=== PATIENT | male | born 1975 | race Two or more races ===

== ENCOUNTER 2024-10-18 10:28 | Emergency (ER) | payer MEDICAID, SELFPAY ==
[2024-10-18 10:30] VITALS: BMI 37.4
[2024-10-18 10:44] VITALS: BP 131/86; PULSE 88; RESP 18; TEMP 36.9; O2SAT 99
--- NOTE | 2024-10-18 10:50 | XR_ITS ---
Examination: Foot, left, 3 views Technique: AP, oblique, lateral views foot, 3 views Date and time of exam: October 18, 2024 1101 hours INDICATIONS: Patient fell 3 weeks ago with injury to the first digit, first digit pain. FINDINGS: Soft tissue swelling about the first digit. Large plantar posterior bony calcaneal spurs. No acute fracture IMPRESSION: No acute fracture
[2024-10-18] MEDS: KETOROLAC INJ 60 MG/2 ML VIAL 30 MG IM (10:56)
--- NOTE | 2024-10-18 11:00 | EDNOTE_ITS ---
Lower Extremity Injury RME/HPI General Stated Complaint: LEFT FOOT SWELLING FOR 4 DAYS AFTER FALL Time Seen by Provider: 10/18/24 10:45 Source: patient Arrival date/time: 10/18/24 10:28 49-year-old female with no known medical history presents to the emergency room with a chief complaint of swelling and tenderness to his left foot first digit x 4 days Mode of arrival: ambulatory Limitations: no limitations Related Data Allergies Allergy/AdvReac Type Severity Reaction Status Date / Time No Known Allergies Allergy Verified 10/18/24 10:33 Review of Systems Review of Systems Systems Reviewed: All systems reviewed, normal except as documented Constitutional Constitutional: Reports system reviewed and no additional complaints, except as documented, Denies fatigue, Denies fever(s), Denies headache(s) and Denies weakness Eyes Eyes: Reports system reviewed and no additional complaints, except as documented, Denies blurry vision and Denies change in vision ENT Ears, Nose, Mouth, and Throat: Reports system reviewed and no additional complaints, except as documented, Denies otalgia, Denies headache(s), Denies nasal congestion, Denies throat swelling and Denies vertigo Cardiovascular Cardiovascular: Reports system reviewed and no additional complaints, except as documented, Denies chest pain, Denies dyspnea and Denies dyspnea on exertion Respiratory Respiratory: Reports system reviewed and no additional complaints, except as documented, Denies chest congestion, Denies cough, Denies dyspnea, Denies dyspnea on exertion and Denies wheezing Gastrointestinal Gastrointestinal: Reports system reviewed and no additional complaints, except as documented, Denies abdominal pain, Denies cramping, Denies nausea and Denies vomiting Genitourinary Genitourinary: Reports system reviewed and no additional complaints, except as documented, Denies dysuria and Denies hematuria Musculoskeletal Musculoskeletal: Reports system reviewed and no additional complaints, except as documented, Reports abnormal gait, Reports arthralgias, Denies back pain, Reports joint swelling and Denies limited range of motion Integumentary/Breasts Skin/Breast: Reports system reviewed and no additional complaints, except as documented and Denies wounds Neurologic Neurologic: Reports system reviewed and no additional complaints, except as documented, Reports abnormal gait, Denies confusion, Denies headache(s), Denies lack of coordination, Denies vertigo and Denies weakness Psychiatric Psychiatric: Reports system reviewed and no additional complaints, except as documented, Denies anxiety, Denies confusion, Denies depression, Denies paranoia, Denies suicidal ideation and Denies tactile hallucinations Endocrine Endocrine: Reports system reviewed and no additional complaints, except as documented and Denies fatigue Hematologic/Lymphatic Hematologic/Lymphatic: Reports system reviewed and no additional complaints, except as documented and Denies lymphadenopathy Allergic/Immunologic Allergic/Immunologic: Reports system reviewed and no additional complaints, except as documented, Denies throat swelling, Denies urticaria and Denies wheezing ED Exam General Limitations: Present no limitations General appearance: Present alert and in no apparent distress Head Head exam: Present atraumatic Eye Eye exam: Present normal appearance, PERRL and EOMI ENT ENT exam: Present normal exam, normal oropharynx and mucous membranes moist Neck Neck exam: Present normal inspection, full ROM and trachea midline Chest Chest inspection: Present normal inspection and symmetric chest wall rise Respiratory Respiratory exam: Present normal lung sounds bilaterally Cardiovascular Cardiovascular exam: Present regular rate, normal rhythm and normal heart sounds Abdominal Exam Abdominal exam: Present soft and normal bowel sounds Extremities Exam Extremities exam: Present normal inspection and full ROM Expanded Lower Extremity Exam Hip/Pelvis exam: Present normal inspection Upper leg exam: Present normal inspection Knee exam: Present normal inspection Lower leg exam: Present normal inspection Ankle exam: Present normal inspection Foot/toe exam: Present tenderness and swelling; Absent full ROM Gait: observed and limited by pain Back Exam Back exam: Present normal inspection and full ROM Neurological Exam Neurological exam: Present alert, oriented X3 and CN II-XII intact Psychiatric Psychiatric exam: Present normal affect and normal mood Skin Skin exam: Present warm, dry, intact and normal color Course Quality Measures none Orders Category Date Time Status XR foot comp LT min 3V Stat Exams 10/18/24 10:50 Completed CBC Stat Lab 10/18/24 10:57 Completed CMP [Comprehensive Metabolic Panel] Stat Lab 10/18/24 10:57 Completed Uric Acid Stat Lab 10/18/24 10:57 Completed Ketorolac Inj [Toradol Inj] Med 10/18/24 10:50 Discontinued 30 mg IM X1 ONE Vital Signs Vital signs: Vital Signs Temperature 98.4 F 10/18/24 10:44 Pulse Rate 88 10/18/24 10:44 Respiratory Rate 18 10/18/24 10:44 Blood Pressure 131/86 H 10/18/24 10:44 Pulse Oximetry (%) 99 10/18/24 10:44 Oxygen Delivery Method Room Air 10/18/24 10:44 Extremity Injury, Lower MDM Narrative MDM Narrative:: 49-year-old female with no known medical history presents to the emergency room with a chief complaint of swelling and tenderness to his left foot first digit x 4 days Patient is hemodynamically stable and in no apparent distress Physical examination shows tenderness swelling and limited range of motion to the left foot first digit. Patient states he had an injury couple days ago when something fell on it but states he was seen by his primary care provider and told that it was possibly gout. CBC CMP uric acid were all within normal limits. X-ray was negative for any acute findings Patient was discharged and educated to follow-up with primary care provider in the next 24 to 48 hours and return to the emergency room for any evidence of worsening signs or symptoms Patient data External records reviewed:: [facility] previous records Clinical information provided by:: patient Social determinants that could affect healthcare access:: none Patient has the following chronic illnesses:: No chronic illness How is presenting disease/condition affected by chronic disease/condition?: no chronic disease Evaluation data The following diagnostics were reviewed and interpreted by me:: lab results and radiology exam(s) Lab and/or radiology exams considered but not ordered:: Labs and radiology exams considered and ordered Interpretation Summary: Foot [id number]: Soft tissue swelling about the first digit. Large plantar posterior bony calcaneal spurs. No acute fracture IMPRESSION: No acute fracture Medications / Prescriptions Medications or Prescriptions considered but not ordered:: Medication given Medication administrations:: Medication Administration History Discontinued Medications Ketorolac Tromethamine (Ketorolac Inj 60 Mg/2 Ml Vial) 30 mg IM X1 ONE Stop: 10/18/24 10:51 Last Admin: 10/18/24 10:56 Dose: 30 mg Documented By: Medication given Consultations Consultation(s) initiated? (list below): No Diagnosis Extremity Injury, Lower Differential Diagnosis: fracture of toe and other (Toe sprain/gout) Most likely diagnosis given after review of the tests above:: Toe sprain Admission Indicated Admission indicated?: not indicated Admission Request Was there a request for admission?: No Disposition Plan Disposition Plan: Discharge Discharge Attestation Discharge Attestation: The patient and all family members were given an opportunity to ask questions and understood the discharge instructions. Discharge instructions specifically effects, indications for sooner follow up or return to the emergency department, and the expected course of current diagnosis. Patient condition: Stable Discharge Plan Plan Patient Disposition: HOME (Self Care) Discharge Disposition comment: Stable Prescriptions/Referrals Referrals: Ketan Azul PA-C [Primary Care Provider] - In 1 week Problem List Clinical Impression: Sprain of great toe, right Patient/Caregiver Discharge Instructions Education Materials: ED Toe Sprain Additional Instructions: Por favor, consulte con webb m?dico de cabecera en las pr?ximas 24 a 48 horas. La radiograf?a de webb dedo del pie fue negativa para cualquier fractura o luxaci?n aguda. El ?cido ?rico y los an?lisis de mirielle estaban dentro de los l?mites normales. Si observa cualquier signo de empeoramiento de los signos o s?ntomas, acuda a urgencias de inmediato. Print Language: Marshallese Stand Alone Forms: Meliza Award Info., Patient Portal Info Letter PA/ASSOCIATE PROFESSOR OF ENGLISH Supervising Physician PA/ASSOCIATE PROFESSOR OF ENGLISH Supervising Physician: Dr. Wang
[2024-10-18 11:20] LABS: Basophils # (Auto) 0.0 Thou/mm3 (0.0-0.2); Basophils % (Auto) 0 % (0-2.5); Eosinophils # (Auto) 0.2 Thou/mm3 (0.0-0.5); Eosinophils % (Auto) 3 % (0-10); Hematocrit 45.3 % (41.0-53.0); Hemoglobin 16.0 g/dL (13.5-16.0); Immature Granulocytes Auto 0.04 Thou/mm3 (0.00-0.00); Lymphocytes # (Auto) 2.2 Thou/mm3 (1.0-4.8); Lymphocytes % (Auto) 23 % (10-50); Mean Corpuscular HGB Conc 35.3 g/dl (31.0-37.0); Mean Corpuscular Hemoglobin 30.7 pg (25.0-35.0); Mean Corpuscular Volume 87 fL (80-100); Monocytes # (Auto) 1.0 Thou/mm3 (0.0-0.8); Monocytes % (Auto) 11 % (0-12); Neutrophils # (Auto) 6.0 Thou/mm3 (1.8-7.7); Neutrophils % (Auto) 63 % (37-80); Nucleated Red Blood Cell # 0.00 Thou/mm3 (0.00-0.00); Nucleated Red Blood Cell % 0 /100 WBC (0); Platelet Count 252 Thou/mm3 (140-440); RDW Standard Deviation 38.8 fL (35.1-43.9); Red Blood Count 5.22 Miln/mm3 (4.50-5.90); White Blood Count 9.5 Thou/mm3 (3.8-10.6)
[2024-10-18 11:36] LABS: Alanine Aminotransferase 15 U/L (10-49); Albumin, Serum 4.8 gm/dL (3.5-5.0); Albumin/Globulin Ratio 1.5 (1.2-2.2); Alkaline Phosphatase 101 U/L (46-116); Anion Gap 11 (7-16); Aspartate Amino Transferase 20 U/L (0-34); BUN/Creatinine Ratio 15 Ratio (12-20); Bilirubin,Total 1.0 mg/dL (0.3-1.2); Blood Urea Nitrogen 12 mg/dL (9-23); Calcium 9.7 mg/dL (8.3-10.6); Calcium (Corrected) 9.7 mg/dL (8.5-10.1); Carbon Dioxide 26.4 mMol/L (20.0-31.0); Chloride 104 mMol/L (98-107); Creatinine (Component) 0.8 mg/dL (0.6-1.3); Estimated Creatinine Clearance 124.1 mL/min (>60); Globulin 3.1 gm/dL (2.3-3.5); Glucose 93 mg/dL (74-106); Osmolality,Calculated 280 (275-295); Potassium 4.0 mMol/L (3.4-5.1); Sodium 141 mMol/L (136-145); Total Protein 7.9 gm/dL (5.7-8.2); Uric Acid 5.5 mg/dL (3.7-9.2); eGFR > 60 See Note
== END 2024-10-18 12:08 | disposition home or self-care (01) ==
PROVIDERS: Nurse Practitioner Family; Emergency Provider Family Medicine; PCP Physician Assistant
DX: S93.501A Unspecified sprain of right great toe, initial encounter (principal); W19.XXXA Unspecified fall, initial encounter
CPT/HCPCS: 36415; 73630; 80053; 84550; 85025; 96372; 99283; J1885

== ENCOUNTER 2024-10-31 12:54 | Emergency (ER) | payer MEDICAID, SELFPAY ==
[2024-10-31 12:55] VITALS: BMI 36.9
[2024-10-31 13:16] VITALS: BP 131/83; PULSE 74; RESP 18; TEMP 36.9; O2SAT 98
--- NOTE | 2024-10-31 13:27 | XR_ITS ---
Examination: Foot, left, 3 views Technique: AP, oblique, lateral views foot, 3 views Date and time of exam: October 31, 2024 1329 hours INDICATIONS: Work injury one month ago to the foot with persistent foot pain FINDINGS: No acute fracture Large plantar posterior bony calcaneal spurs No dislocation IMPRESSION: No acute fracture
[2024-10-31] MEDS: KETOROLAC INJ 60 MG/2 ML VIAL 30 MG IM (13:48)
[2024-10-31 14:25] LABS: Basophils # (Auto) 0.1 Thou/mm3 (0.0-0.2); Basophils % (Auto) 0 % (0-2.5); Eosinophils # (Auto) 0.3 Thou/mm3 (0.0-0.5); Eosinophils % (Auto) 3 % (0-10); Hematocrit 49.0 % (41.0-53.0); Hemoglobin 16.7 g/dL (13.5-16.0); Immature Granulocytes Auto 0.15 Thou/mm3 (0.00-0.00); Lymphocytes # (Auto) 2.7 Thou/mm3 (1.0-4.8); Lymphocytes % (Auto) 23 % (10-50); Mean Corpuscular HGB Conc 34.1 g/dl (31.0-37.0); Mean Corpuscular Hemoglobin 29.7 pg (25.0-35.0); Mean Corpuscular Volume 87 fL (80-100); Monocytes # (Auto) 1.1 Thou/mm3 (0.0-0.8); Monocytes % (Auto) 10 % (0-12); Neutrophils # (Auto) 7.2 Thou/mm3 (1.8-7.7); Neutrophils % (Auto) 62 % (37-80); Nucleated Red Blood Cell # 0.00 Thou/mm3 (0.00-0.00); Nucleated Red Blood Cell % 0 /100 WBC (0); Platelet Count 227 Thou/mm3 (140-440); RDW Standard Deviation 39.6 fL (35.1-43.9); Red Blood Count 5.63 Miln/mm3 (4.50-5.90); White Blood Count 11.6 Thou/mm3 (3.8-10.6)
[2024-10-31 14:45] LABS: Sed Rate (ESR) 14 mm/hr (0-15)
[2024-10-31 14:50] LABS: Alanine Aminotransferase 22 U/L (10-49); Albumin, Serum 4.8 gm/dL (3.5-5.0); Albumin/Globulin Ratio 1.7 (1.2-2.2); Alkaline Phosphatase 102 U/L (46-116); Anion Gap 8 (7-16); Aspartate Amino Transferase 21 U/L (0-34); BUN/Creatinine Ratio 18 Ratio (12-20); Bilirubin,Total 0.8 mg/dL (0.3-1.2); Blood Urea Nitrogen 14 mg/dL (9-23); C-Reactive Protein < 0.5 mg/dL (0.0-0.9); Calcium 9.9 mg/dL (8.3-10.6); Calcium (Corrected) 9.9 mg/dL (8.5-10.1); Carbon Dioxide 28.4 mMol/L (20.0-31.0); Chloride 104 mMol/L (98-107); Creatinine (Component) 0.8 mg/dL (0.6-1.3); Estimated Creatinine Clearance 123.3 mL/min (>60); Globulin 2.8 gm/dL (2.3-3.5); Glucose 81 mg/dL (74-106); Osmolality,Calculated 278 (275-295); Potassium 4.2 mMol/L (3.4-5.1); Sodium 140 mMol/L (136-145); Total Protein 7.6 gm/dL (5.7-8.2); Uric Acid 6.3 mg/dL (3.7-9.2); eGFR > 60 See Note
--- NOTE | 2024-10-31 15:33 | XR_ITS ---
Examination: Duplex scan of the lower extremity, unilateral left complete Date and time of exam: October 31, 2024, 1558 hrs. Indications: Left foot swelling and pain beginning 3 weeks ago. Technique: Duplex scan of the extremity veins using B-mode/grayscale imaging and Doppler spectral analysis and color flow Attention is directed to internal echogenicity, compression and augmentation involving these veins, color flow assessment, spectral analysis Findings: Major deep venous structures in the extremity demonstrate normal course and caliber. There is no evidence of deep vein thrombosis. Normal color flow and spectral analysis Impression: Negative for DVT.. Hyperechoic solid structure posterior left knee anterior to the popliteal artery 2.2 x 1.6 x 1.5 cm, consider MRI knee without contrast follow-up
--- NOTE | 2024-10-31 16:23 | PD.EDANKLE ---
Lower Extremity Injury RME/HPI General Chief Complaint: Ankle/Foot Injury Stated Complaint: LEFT FOOT PAIN Time Seen by Provider: 10/31/24 13:27 Arrival date/time: 10/31/24 12:54 49-year-old male with no significant medical problems presents to the emergency room today for complaints of left foot pain and swelling ongoing x 1 month Limitations: no limitations Related Data Previous Rx's ?Medication ?Instructions ?Recorded hydrocodone 5 mg-acetaminophen 325 1 tab PO BID PRN pain #10 tabs 10/31/24 mg tablet meloxicam 7.5 mg tablet 7.5 mg PO QDAY 7 days #7 tabs 10/31/24 Allergies Allergy/AdvReac Type Severity Reaction Status Date / Time No Known Allergies Allergy Verified 10/31/24 12:55 Review of Systems Review of Systems Systems Reviewed: All systems reviewed, normal except as documented Constitutional Constitutional: Reports system reviewed and no additional complaints, except as documented, Denies fever(s) and Denies headache(s) Eyes Eyes: Reports system reviewed and no additional complaints, except as documented and Denies blurry vision ENT Ears, Nose, Mouth, and Throat: Reports system reviewed and no additional complaints, except as documented, Denies headache(s), Denies nasal congestion and Denies nasal discharge Cardiovascular Cardiovascular: Reports system reviewed and no additional complaints, except as documented, Denies chest pain and Denies dyspnea Respiratory Respiratory: Reports system reviewed and no additional complaints, except as documented, Denies chest congestion, Denies cough and Denies dyspnea Gastrointestinal Gastrointestinal: Reports system reviewed and no additional complaints, except as documented and Denies abdominal pain Musculoskeletal Musculoskeletal: Reports system reviewed and no additional complaints, except as documented, Reports abnormal gait, Reports arthralgias (Mild swelling dorsal aspect left foot mostly left great toe), Denies deformity, Denies numbness, Reports stiffness and Denies tingling Integumentary/Breasts Skin/Breast: Reports system reviewed and no additional complaints, except as documented and Denies rash Neurologic Neurologic: Reports system reviewed and no additional complaints, except as documented, Reports as per HPI, Reports abnormal gait, Denies headache(s), Denies numbness and Denies tingling Past Medical History Social History SMOKING STATUS: Never smoker ED Exam General Limitations: Present no limitations General appearance: Present alert and in no apparent distress Head Head exam: Present atraumatic Eye Eye exam: Present normal appearance, PERRL and EOMI ENT ENT exam: Present normal exam, normal oropharynx and mucous membranes moist Neck Neck exam: Present normal inspection, full ROM and trachea midline Chest Chest inspection: Present normal inspection and symmetric chest wall rise Respiratory Respiratory exam: Present normal lung sounds bilaterally Cardiovascular Cardiovascular exam: Present regular rate, normal rhythm and normal heart sounds Abdominal Exam Abdominal exam: Present soft and normal bowel sounds; Absent distention, tenderness, guarding, rebound or rigidity Extremities Exam Extremities exam: Present normal inspection, full ROM, tenderness and normal capillary refill; Absent pedal edema, joint swelling or calf tenderness Back Exam Back exam: Present normal inspection and full ROM Neurological Exam Neurological exam: Present alert, oriented X3, CN II-XII intact, normal gait and reflexes normal; Absent motor sensory deficit Psychiatric Psychiatric exam: Present normal affect and normal mood Skin Skin exam: Present warm, dry, intact and normal color; Absent rash Course Quality Measures none Orders Category Date Time Status US venous doppler LE LT Stat Exams 10/31/24 15:33 Completed XR foot comp LT min 3V Stat Exams 10/31/24 13:27 Completed CBC Stat Lab 10/31/24 14:03 Completed CMP [Comprehensive Metabolic Panel] Stat Lab 10/31/24 14:03 Completed CRP [C-Reactive Protein] Stat Lab 10/31/24 14:03 Completed ESR [Sed Rate (ESR)] Stat Lab 10/31/24 14:03 Completed Uric Acid Stat Lab 10/31/24 14:03 Completed Ketorolac Inj [Toradol Inj] Med 10/31/24 13:27 Discontinued 30 mg IM X1 ONE Vital Signs Vital signs: Vital Signs Temperature 98.4 F 10/31/24 13:16 Pulse Rate 74 10/31/24 13:16 Respiratory Rate 18 10/31/24 13:16 Blood Pressure 131/83 H 10/31/24 13:16 Pulse Oximetry (%) 98 10/31/24 13:16 Oxygen Delivery Method Room Air 10/31/24 13:16 O2 saturation 98% room air within limits Extremity Injury, Lower MDM Narrative MDM Narrative:: 49-year-old male with no significant medical problems presents to the emergency room today for complaints of left foot pain and swelling ongoing x 1 month On exam patient well-appearing patient is not appear ill or toxic no acute distress Lab work and imaging obtained no acute emergent findings noted Patient discharged home in no distress to follow-up with primary care doctor in the next 24 to 48 hours and for any worsening symptoms to return to the ER immediately Patient data External records reviewed:: [facility] previous records Clinical information provided by:: patient Social determinants that could affect healthcare access:: none Patient has the following chronic illnesses:: None How is presenting disease/condition affected by chronic disease/condition?: no chronic disease Evaluation data The following diagnostics were reviewed and interpreted by me:: lab results and radiology exam(s) Lab and/or radiology exams considered but not ordered:: Labs radiology obtained Interpretation Summary: Reviewed by me Medications / Prescriptions Medications or Prescriptions considered but not ordered:: Given Medication administrations:: Medication Administration History Discontinued Medications Ketorolac Tromethamine (Ketorolac Inj 60 Mg/2 Ml Vial) 30 mg IM X1 ONE Stop: 10/31/24 13:28 Last Admin: 10/31/24 13:48 Dose: 30 mg Documented By: Given Consultations Consultation(s) initiated? (list below): No Diagnosis Extremity Injury, Lower Differential Diagnosis: ankle sprain and strain, acute internal derangement of knee and ankle fracture Most likely diagnosis given after review of the tests above:: Foot sprain, foot fracture, gout Admission Indicated Admission indicated?: not indicated Admission Request Was there a request for admission?: No Disposition Plan Disposition Plan: Discharge Discharge Attestation Discharge Attestation: The patient and all family members were given an opportunity to ask questions and understood the discharge instructions. Discharge instructions specifically effects, indications for sooner follow up or return to the emergency department, and the expected course of current diagnosis. Patient condition: Stable Discharge Plan Plan Patient Disposition: HOME (Self Care) Discharge Disposition comment: Stable Prescriptions/Referrals Prescriptions/Med Rec: New hydrocodone-acetaminophen 5-325 mg tablet 1 tab PO BID MDD 10 PRN (Reason: pain) Qty: 10 0RF meloxicam 7.5 mg tablet 7.5 mg PO QDAY 7 Days Qty: 7 0RF Referrals: Ketan Azul PA-C [Primary Care Provider] - 11/01/24 Problem List Clinical Impression: Acute pain of left foot Patient/Caregiver Discharge Instructions Education Materials: RICE Additional Instructions: Please follow up with your primary care doctor in the next 24-48hrs for any worsening symptoms return here immediately Please request outpatient MRI of knee and foot Print Language: Mohawk Stand Alone Forms: Meliza Award Info., Work/School Release, Patient Portal Info Letter PA/FURNACE INSTALLER HELPER Supervising Physician PA/FURNACE INSTALLER HELPER Supervising Physician: Dr salvador
== END 2024-10-31 16:55 | disposition home or self-care (01) ==
PROVIDERS: Nurse Practitioner Primary Care; Emergency Provider Family Medicine; PCP Physician Assistant
DX: M79.672 Pain in left foot (principal)
CPT/HCPCS: 36415; 73630; 80053; 84550; 85025; 85652; 86140; 93971; 96372; 99283; J1885

== ENCOUNTER → 2024-11-25 | Outpatient (CLI) | payer MEDICAID, SELFPAY ==
--- NOTE | 2024-11-25 16:45 | XR_ITS ---
Exam: MRI knee without contrast, left Date and time of exam: November 25, 2024, 1820 hrs. Indications: Patient fell last month with injury to the knee, persistent knee pain and swelling numbness paresthesias joint clicking instability stiffness and swelling Technique: Multiple axial, coronal, and sagittal sections on the knee have been obtained. T2-Weighted sagittal, fat-suppressed images, TR 3,500, TE 62, T2 weighted coronal fat-saturated images, TR 3,500, TE 62 Proton density sagittal sections, TR 1800, TE 31. T-1 weighted coronal images, TR 524, TE 13.0 Findings: Medial meniscus anterior horn intact. Medial meniscus, body meniscocapsular separation. Posterior horn medial meniscus horizontal linear tear, peripheral and tiny vertical tear communicating inferior articular surface Lateral meniscus anterior horn is intact Lateral meniscus, body is intact Posterior horn lateral meniscus is intact Anterior cruciate ligament mild sprain. Posterior cruciate ligament appears intact. Knee effusion is small. Quadriceps and patellar tendons appear intact. There is no evidence of tendinosis. Inflammatory change or fracture of Hoffa's fat pad is not seen. Medial patellar facet demonstrates mild thinning. Lateral patellar facet cartilage demonstrates mild thinning. Trochlear cartilage demonstrates mild thinning. Marrow signal adequate. Medial collateral ligament appears intact. . Illiotibial band and fibular collateral ligament are intact. Biceps femoris tendons appear intact. Medial femoral condylar articular cartilage demonstrates moderate thinning. Lateral femoral condylar articular cartilage demonstratesmoderate thinning. Tibial plateau cartilage demonstrates moderate thinning. Impression: Tears of the posterior horn medial meniscus Meniscocapsular separation body the medial meniscus Mild sprain anterior cruciate ligament
== END | disposition home or self-care (01) ==
PROVIDERS: PCP Physician Assistant; Referring Provider Physician Assistant; Visit Provider Physician Assistant
DX: S83.242A Other tear of medial meniscus, current injury, left knee, initial encounter (principal); S83.195A Other dislocation of left knee, initial encounter; S83.512A Sprain of anterior cruciate ligament of left knee, initial encounter; W19.XXXA Unspecified fall, initial encounter
CPT/HCPCS: 73721

== ENCOUNTER 2024-12-09 09:35 | Emergency (ER) | payer MEDICAID, SELFPAY ==
[2024-12-09 09:36] VITALS: BMI 38.2
[2024-12-09 09:53] VITALS: BP 133/80; PULSE 78; RESP 18; TEMP 36.9; O2SAT 100
--- NOTE | 2024-12-09 10:02 | XR_ITS ---
Examination: Foot, left, 3 views Technique: AP, oblique, lateral views foot, 3 views Date and time of exam: December 09, 2024, 10 0 2:00 a.m., comparison 10/31/2024 INDICATIONS: Left foot pain beginning 3 months ago FINDINGS: Moderate osteoarthritis first metatarsophalangeal joint No fracture 10 mm plantar posterior bony calcaneal spurs No cortical bone destruction IMPRESSION: Moderate osteoarthritis first metatarsophalangeal joint. Large plantar posterior bony calcaneal spurs
--- NOTE | 2024-12-09 10:05 | EDNOTE_ITS ---
<Statement entered by Yumiko Jeter MD - 12/09/24 14:40> As co-signing physician, I was present and available for consult prn. I concur with the plan and care as documented by the midlevel provider. Lower Extremity Injury RME/HPI General Chief Complaint: Ankle/Foot Injury Stated Complaint: B/L FOOT PAIN Time Seen by Provider: 12/09/24 10:05 Source: patient Arrival date/time: 12/09/24 09:35 49-year-old male with no known medical history presents to the emergency room with a chief complaint of left foot tenderness and swelling x 1 week Mode of arrival: ambulatory Limitations: no limitations Related Data Previous Rx's ?Medication ?Instructions ?Recorded hydrocodone 5 mg-acetaminophen 325 1 tab PO BID PRN pa in #10 tabs 10/31/24 mg tablet Allergies Allergy/AdvReac Type Severity Reaction Status Date / Time No Known Allergies Allergy Verified 12/09/24 09:40 Review of Systems Review of Systems Systems Reviewed: All systems reviewed, normal except as documented Constitutional Constitutional: Reports system reviewed and no additional complaints, except as documented, Denies fatigue, Denies fever(s), Denies headache(s) and Denies weakness Eyes Eyes: Reports system reviewed and no additional complaints, except as documented, Denies blurry vision and Denies change in vision ENT Ears, Nose, Mouth, and Throat: Reports system reviewed and no additional complaints, except as documented, Denies otalgia, Denies headache(s), Denies nasal congestion, Denies throat swelling and Denies vertigo Cardiovascular Cardiovascular: Reports system reviewed and no additional complaints, except as documented, Denies chest pain, Denies dyspnea and Denies dyspnea on exertion Respiratory Respiratory: Reports system reviewed and no additional complaints, except as documented, Denies chest congestion, Denies cough, Denies dyspnea, Denies dyspnea on exertion and Denies wheezing Gastrointestinal Gastrointestinal: Reports system reviewed and no additional complaints, except as documented, Denies abdominal pain, Denies cramping, Denies nausea and Denies vomiting Genitourinary Genitourinary: Reports system reviewed and no additional complaints, except as documented, Denies dysuria and Denies hematuria Musculoskeletal Musculoskeletal: Reports system reviewed and no additional complaints, except as documented, Reports arthralgias, Denies back pain, Reports joint swelling and Reports limited range of motion Integumentary/Breasts Skin/Breast: Reports system reviewed and no additional complaints, except as documented and Denies wounds Neurologic Neurologic: Reports system reviewed and no additional complaints, except as documented, Denies confusion, Denies headache(s), Denies lack of coordination, Denies vertigo and Denies weakness Psychiatric Psychiatric: Reports system reviewed and no additional complaints, except as documented, Denies anxiety, Denies confusion, Denies depression, Denies paranoia, Denies suicidal ideation and Denies tactile hallucinations Endocrine Endocrine: Reports system reviewed and no additional complaints, except as documented and Denies fatigue Hematologic/Lymphatic Hematologic/Lymphatic: Reports system reviewed and no additional complaints, except as documented and Denies lymphadenopathy Allergic/Immunologic Allergic/Immunologic: Reports system reviewed and no additional complaints, except as documented, Denies throat swelling, Denies urticaria and Denies wheezing Past Medical History Social History SMOKING STATUS: Former smoker ED Exam General Limitations: Present no limitations General appearance: Present alert and in no apparent distress Head Head exam: Present atraumatic Eye Eye exam: Present normal appearance, PERRL and EOMI ENT ENT exam: Present normal exam, normal oropharynx and mucous membranes moist Neck Neck exam: Present normal inspection, full ROM and trachea midline Chest Chest inspection: Present normal inspection and symmetric chest wall rise Respiratory Respiratory exam: Present normal lung sounds bilaterally Cardiovascular Cardiovascular exam: Present regular rate, normal rhythm and normal heart sounds Abdominal Exam Abdominal exam: Present soft and normal bowel sounds Extremities Exam Extremities exam: Present normal inspection and full ROM Expanded Lower Extremity Exam Hip/Pelvis exam: Present normal inspection Upper leg exam: Present normal inspection Knee exam: Present normal inspection Lower leg exam: Present normal inspection Ankle exam: Present normal inspection Foot/toe exam: Present full ROM, tenderness, swelling and erythema Back Exam Back exam: Present normal inspection and full ROM Neurological Exam Neurological exam: Present alert, oriented X3 and CN II-XII intact Psychiatric Psychiatric exam: Present normal affect and normal mood Skin Skin exam: Present warm, dry, intact and normal color Course Quality Measures none Orders Category Date Time Status XR foot comp LT min 3V Stat Exams 12/09/24 10:02 Completed CBC Stat Lab 12/09/24 10:21 Completed CMP [Comprehensive Metabolic Panel] Stat Lab 12/09/24 10:21 Completed CRP [C-Reactive Protein] Stat Lab 12/09/24 10:21 Completed ESR [Sed Rate (ESR)] Stat Lab 12/09/24 10:21 Completed Uric Acid Stat Lab 12/09/24 10:21 Completed Ketorolac Inj [Toradol Inj] Med 12/09/24 10:00 Discontinued 30 mg IM X1 ONE Vital Signs Vital signs: Vital Signs Temperature 98.5 F 12/09/24 09:53 Pulse Rate 78 12/09/24 09:53 Respiratory Rate 18 12/09/24 09:53 Blood Pressure 133/80 H 12/09/24 09:53 Pulse Oximetry (%) 100 12/09/24 09:53 Oxygen Delivery Method Room Air 12/09/24 09:53 Extremity Injury, Lower MDM Narrative MDM Narrative:: 49-year-old male with no known medical history presents to the emergency room with a chief complaint of left foot tenderness and swelling x 1 week Patient is hemodynamically stable and in no apparent distress Physical examination shows tenderness swelling and pain to the left foot first metatarsophalangeal joint. The patient is also having some pain and tenderness to the right foot near the tib-fib area. Patient states he has been seen in the past for this complaint. CBC CMP were within normal limits. X-ray of the foot showed osteoarthritis to the left metatarsophalangeal joint. Uric acid was within normal limits Patient was discharged and educated to follow-up with primary care provider in the next 24 to 48 hours and return to the emergency room for any evidence of worsening signs or symptoms Patient data External records reviewed:: [facility] previous records Clinical information provided by:: patient Social determinants that could affect healthcare access:: none Patient has the following chronic illnesses:: No chronic illness How is presenting disease/condition affected by chronic disease/condition?: no chronic disease Evaluation data The following diagnostics were reviewed and interpreted by me:: lab results and radiology exam(s) Lab and/or radiology exams considered but not ordered:: Labs and radiology exams considered and ordered Interpretation Summary: FINDINGS: Moderate osteoarthritis first metatarsophalangeal joint No fracture 10 mm plantar posterior bony calcaneal spurs No cortical bone destruction IMPRESSION: Moderate osteoarthritis first metatarsophalangeal joint. Large plantar posterior bony calcaneal spurs Medications / Prescriptions Medications or Prescriptions considered but not ordered:: Medication given Medication administrations:: Medication Administration History Discontinued Medications Ketorolac Tromethamine (Ketorolac Inj 60 Mg/2 Ml Vial) 30 mg IM X1 ONE Stop: 12/09/24 10:01 Last Admin: 12/09/24 10:16 Dose: 30 mg Documented By: JOSEY Medication given Consultations Consultation(s) initiated? (list below): No Diagnosis Extremity Injury, Lower Differential Diagnosis: other (Osteoarthritis of the joint of toe of left foot/gout/fracture) Most likely diagnosis given after review of the tests above:: Osteoarthritis of the joint of the left toe Admission Indicated Admission indicated?: not indicated Admission Request Was there a request for admission?: No Disposition Plan Disposition Plan: Discharge Discharge Attestation Discharge Attestation: The patient and all family members were given an opportunity to ask questions and understood the discharge instructions. Discharge instructions specifically effects, indications for sooner follow up or return to the emergency department, and the expected course of current diagnosis. 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 Your uric acid was within normal limits Your x-ray showed osteoarthritis of your left foot. Please follow-up with your primary care provider for further management For any evidence of worsening signs or symptoms return to emergency room immediately Print Language: Turkmen Stand Alone Forms: Meliza Award Info., Work/School Release, Patient Portal Info Letter CARLOS Supervising Physician CARLOS Supervising Physician: Dr. JETER
[2024-12-09] MEDS: KETOROLAC INJ 60 MG/2 ML VIAL 30 MG IM (10:16)
[2024-12-09 10:47] LABS: Basophils # (Auto) 0.0 Thou/mm3 (0.0-0.2); Basophils % (Auto) 1 % (0-2.5); Eosinophils # (Auto) 0.2 Thou/mm3 (0.0-0.5); Eosinophils % (Auto) 3 % (0-10); Hematocrit 46.1 % (41.0-53.0); Hemoglobin 16.1 g/dL (13.5-16.0); Immature Granulocytes Auto 0.06 Thou/mm3 (0.00-0.00); Lymphocytes # (Auto) 1.7 Thou/mm3 (1.0-4.8); Lymphocytes % (Auto) 23 % (10-50); Mean Corpuscular HGB Conc 34.9 g/dl (31.0-37.0); Mean Corpuscular Hemoglobin 29.6 pg (25.0-35.0); Mean Corpuscular Volume 85 fL (80-100); Monocytes # (Auto) 0.7 Thou/mm3 (0.0-0.8); Monocytes % (Auto) 9 % (0-12); Neutrophils # (Auto) 4.7 Thou/mm3 (1.8-7.7); Neutrophils % (Auto) 63 % (37-80); Nucleated Red Blood Cell # 0.00 Thou/mm3 (0.00-0.00); Nucleated Red Blood Cell % 0 /100 WBC (0); Platelet Count 177 Thou/mm3 (140-440); RDW Standard Deviation 38.8 fL (35.1-43.9); Red Blood Count 5.44 Miln/mm3 (4.50-5.90); White Blood Count 7.5 Thou/mm3 (3.8-10.6)
[2024-12-09 11:09] LABS: Alanine Aminotransferase 12 U/L (10-49); Albumin, Serum 4.7 gm/dL (3.5-5.0); Albumin/Globulin Ratio 1.7 (1.2-2.2); Alkaline Phosphatase 99 U/L (46-116); Anion Gap 9 (7-16); Aspartate Amino Transferase 20 U/L (0-34); BUN/Creatinine Ratio 13 Ratio (12-20); Bilirubin,Total 1.2 mg/dL (0.3-1.2); Blood Urea Nitrogen 10 mg/dL (9-23); C-Reactive Protein < 0.5 mg/dL (0.0-0.9); Calcium 9.0 mg/dL (8.3-10.6); Calcium (Corrected) 9.0 mg/dL (8.5-10.1); Carbon Dioxide 28.7 mMol/L (20.0-31.0); Chloride 105 mMol/L (98-107); Creatinine (Component) 0.8 mg/dL (0.6-1.3); Estimated Creatinine Clearance 125.6 mL/min (>60); Globulin 2.8 gm/dL (2.3-3.5); Glucose 101 mg/dL (74-106); Osmolality,Calculated 283 (275-295); Potassium 3.7 mMol/L (3.4-5.1); Sodium 143 mMol/L (136-145); Total Protein 7.5 gm/dL (5.7-8.2); Uric Acid 7.4 mg/dL (3.7-9.2); eGFR > 60 See Note
[2024-12-09 11:35] LABS: Sed Rate (ESR) 10 mm/hr (0-15)
== END 2024-12-09 14:08 | disposition home or self-care (01) ==
PROVIDERS: Nurse Practitioner Family; Emergency Provider Emergency Medicine; PCP Physician Assistant
DX: S99.921A Unspecified injury of right foot, initial encounter (principal); X50.0XXA Overexertion from strenuous movement or load, initial encounter
CPT/HCPCS: 36415; 73630; 80053; 84550; 85025; 85652; 86140; 96372; 99283; J1885

== ENCOUNTER 2025-01-30 08:06 | Outpatient (AMB) | payer MEDICAID, SELFPAY ==
[2025-01-30 08:22] VITALS: BP 138/91; PULSE 68; RESP 18; TEMP 36.6; O2SAT 95; BMI 39.6
--- NOTE | 2025-01-30 08:22 | PD.ORTHCLVIS ---
Vital signs 01/30/25 08:22 Height 1.65 m Height Method Measured Weight 107.955 kg Weight Measurement Method Standing Scale BMI 39.6 BP 138/91 H Blood Pressure Source Automatic Cuff Blood Pressure Location Left Upper Arm Position Sitting Respiration 18 Pulse 68 Pulse Source Monitor Temp 97.9 F Temp Source Temporal Artery Scan Pulse Oximetry (%) 95 Oxygen Delivery Method Room Air Med/Allergies Allergies & Medications Allergies No Known Allergies Allergy (Verified 01/30/25 08:24) Medication Reconciliation hydrocodone 5 mg-acetaminophen 325 mg tablet 1 tab PO BID PRN pain #10 tabs 10/31/24 [Rx Confirmed 01/30/25] meloxicam 7.5 mg tablet 7.5 mg PO QDAY #45 tabs 01/30/25 [Rx] Exam Exam Patient is in no acute distress and is cooperative with the examination today. Breathing is nonlabored. Patient has a normal mood and affect. Bilateral extremities were evaluated and demonstrates sensation intact to light touch. Palpable pedal pulses are present. No significant edema is present. Bilateral hips were examined. The patient has no pain with log roll of the hips. Internal rotation to 30 degrees and external rotation to 30 degrees is painless. Negative FADIR. Right knee was examined today. The right knee is in reasonable alignment. Range of motion from 0-120 degrees. Knee is stable to varus and valgus as well as AP translation with <5mm. Patient has a negative McMurrays. There is no pain with patellofemoral compression and no crepitus noted. The knee is nontender to palpation. Left knee was examined today. The left knee is in varus alignment. Range of motion from 0-115 degrees. Knee is stable to varus and valgus as well as AP translation with <5mm. Patient has a Positive McMurrays. There is no pain with patellofemoral compression and no crepitus noted. The knee is tender to palpation medially. Assessment and Plan Problem List (1) Tear of meniscus of left knee: Status: Acute Plan: Patient is a 50-year-old male with left knee pain after an injury at work. The knee pain is primarily posterior. He has been only going for 2 months and has not had any conservative treatment. We will start with injections as well as anti-inflammatories. Given that there are no mechanical symptoms I would for start with conservative treatment. We can consider physical therapy after this Recommend knee cortisone injection as patient would like to proceed with conservative treatment at this time. The risks and benefits of the procedure were reviewed with the patient and patient gave verbal consent to continue with the procedure. Procedure: performed by Dr. Arora Using sterile technique the left knee was thoroughly prepped with alcohol, and approximately 1 cc of Depo-Medrol 80mg/mL and 4 cc of 0.2% ropivacaine was injected without resistance into the medial tibial femoral joint space. The patient tolerated the procedure. Office Procedures GNS Level of Care Nursing/Assessment Patient Status: Initial/New Patient Nursing Assessment/Reassesment: Medication Reconciliation, Update PMH in EMR and Vital Signs Coordination of Care: Complex Care and Chronic Disease 1-5, Education Complex Pt/Fam, Consent,records obtained, informed consent, Lab and Imaging orders, Results/Orders obtained and Staff clarify orders Special Needs: Language special needs New Patient Charge New Patient Point Assignment: 1106 New Patient Point Charge: STOCK MIXER Level 3 ([id number]) Surgical Proc/IM SQ injection Minor Surgical Procedure: Yes (KNEE INJECTION ) Medication Given Medication Given Medication Given: Yes Documented Dose Given: 1 Route: Infiitration Medication Given Medication Given Medication Given: Yes Documented Dose Given: 4 Route: Infiitration Office Meds methylprednisolone acetate 80 mg/mL suspension for injection Performing Provider: Kirit Arora MD Performing Location: [facility] Administered by: Kirit Arora MD on 01/30/25 08:47 Dose Route Admin Location Dispensed Lot Number Expiration Date Package [facility] Pump Service Supervisor 80 mg intra-articular KNEE 1 mL [id number] 10/20/26 [address]-5 [id number] [employer] ropivacaine (PF) 2 mg/mL (0.2 %) injection solution Performing Provider: Kirit Arora MD Performing Location: [facility] Administered by: Kirit Arora MD on 01/30/25 08:47 Dose Route Admin Location Dispensed Lot Number Expiration Date Package [facility] Pump Service Supervisor 20 mL Infiltration KNEE 20 mL [id number] 07/20/26 4816-3435-13 [id number] [facility]ITTLEJOHN MA Intake Visit Data Collection New Patient or Established: New Patient (never been to [facility]) Reason for Visit:: LEFT KNEE MENISCUS TEAR Seen by Clinical Staff ONLY (RN/MA): No Sharepoint Engineer Required: Yes PCP or OBGYN visit in last 3 months: Yes Hx Now: No Do You Feel Safe at Home: Yes Authorities Contacted: N/A Questionairres Past Medical History Past Medical History Have you ever been diagnosed with any of the following: Subjective Visit Visit for: new patient and knee Immunization / Flu Flu Vaccine in the Last 12 Months: No Flu Vaccine Exclusion Criteria: Refused by Patient History of Present Illness Chief complaint: LEFT KNEE MENISCUS TEAR Date of injury / onset of symptoms: 09/2024 HISTORY OF PRESENT ILLNESS I, Kirit Arora, have obtained verbal consent from the patient, to be recorded during this encounter which may include, but not limited to, medical history, examination, treatment plans, and relevant health information.? Patient was informed that recording will be read and reviewed by myself before inclusion in the medical chart. The patient presents for evaluation of knee pain. He is accompanied by a management liaison. Patient is a 50-year-old male with left knee pain after a fall at work. He reports experiencing pain in the posterior aspect of his knee, which he describes as dull and achy in nature. The onset of this pain was approximately 2 months ago, following a fall at his workplace. He has not sought any treatment for this condition yet. He expresses concern about the potential need for disability due to the severity of his symptoms.He denies any mechanical symptoms such as locking. Personal History Occupation: STAFFING DIRECTOR Red flag PMH: none BMI Counceling provided: Yes Pain Pain level (0-10): 6 Pain location: posterior Pain quality: aching Pain timing: increases with activity and stairs Associated signs & symptoms: numbness Ambulatory data Ambulatory device: none Treatments Number of previous injections: 0 Improvement with previous injections: No Number of Physical Therapy sessions: 0 Improvement with PT: No Improvement with NSAIDS: no Review of Systems Review of Systems: All systems negative unless otherwise noted in HPI.
--- NOTE | 2025-01-30 08:36 | XR_ITS ---
EXAMINATION: Bilateral AP knees single view Left knee PA lateral axial 3 views TECHNIQUE: Bilateral AP knees standing single view Left knee standing PA flexion, standing lateral, axial left knee 3 views total 4 views Date and time: January 30, 2025, 0848 hours INDICATIONS: Left knee pain for months FINDINGS: Mild osteopenia Minimal left knee tricompartment osteoarthritis No fractures No patellar dislocation IMPRESSION: Minimal left knee tricompartment osteoarthritis
== END 2025-01-30 08:47 | disposition home or self-care (01) ==
LOC: HODSRG 08:06
PROVIDERS: PCP Nurse Practitioner Family; Referring Provider Nurse Practitioner Family; Supervising Provider Orthopaedic Surgery Adult Reconstructive Orthopaedic Surgery; Visit Provider Orthopaedic Surgery Adult Reconstructive Orthopaedic Surgery
DX: S83.207A Unspecified tear of unspecified meniscus, current injury, left knee, initial encounter (principal); W19.XXXA Unspecified fall, initial encounter; M25.562 Pain in left knee; Y99.0 Civilian activity done for income or pay; M17.12 Unilateral primary osteoarthritis, left knee
CPT/HCPCS: 20610; 73564; 99203; J1010; J2795; G0463